=== PATIENT | female | born 2000 | race African-American/Black ===

== ENCOUNTER 2021-07-05 08:00 | Outpatient (CLI) | payer OTHER | END 2021-07-05 23:59 | LOC: LAB.N 08:00 | PROVIDERS: ATTEND Family Medicine | DX: U07.1 COVID-19 (principal) ==

== ENCOUNTER 2021-07-17 20:57 | Emergency (ER) | payer OTHER ==
[2021-07-17 21:08] VITALS: BP 128/80
--- NOTE | 2021-07-17 21:18 | ED Physician Documentation ---
History of Present Illness - Stated complaint Stated Complaint: FEMALE - Chief complaint Chief Complaint: General - History obtained from History obtained from: Patient - Additonal information Additional information: Sexually active 20-year-old woman was diagnosed with BV and yeast infection a little over a month ago. That resolved but over the last day or so has noted burning again and painful lumps in her perineal area. Review of Systems Constitutional: denies: Fever, Chills Throat: reports: Reviewed and negative Cardiac: reports: Reviewed and negative Respiratory: reports: Reviewed and negative PD PAST MEDICAL HISTORY - Present Medications Home Medications: Ambulatory Orders Medication Instructions Recorded Confirmed Doxycycline Hyclate 100 mg PO BID #14 tablet 05/21/21 metroNIDAZOLE [Flagyl] 500 mg PO TID 7 Days #21 tab 05/21/21 - Allergies Allergies/Adverse Reactions: Allergies Allergy/AdvReac Type Severity Reaction Status Date / Time No Known Drug Allergies Allergy Verified 07/17/21 21:09 - Social History Does the pt smoke?: No Smoking Status: Never smoker PD ED PE NORMAL - Vitals Vital signs reviewed: Yes - General General: Alert and oriented X 3, No acute distress - Abdomen Abdomen: Normal bowel sounds, Soft, Non tender - Female Female : [employer] present (Janice Seaman RN), Other (Yeasty dischg with satellite lesions more c/w hodan than HSV) - Neuro Neuro: Alert and oriented X 3, Normal speech - Psych Psych: Normal mood, Normal affect Results - Vitals Vitals: Vital Signs - 24 hr 07/17/21 07/17/21 21:02 21:53 Temperature 36.3 C L Heart Rate 93 93 Respiratory 16 14 Rate Blood Pressure 128/80 128/80 O2 Saturation 100 100 Oxygen O2 Source Room air - Labs Labs: Laboratory Tests 07/17/21 21:10 Urine Color YELLOW Urine Clarity CLEAR Urine pH 7.0 Ur Specific [place] 1.010 Urine Protein NEGATIVE Urine Glucose (UA) NEGATIVE Urine Ketones NEGATIVE Urine Occult Blood NEGATIVE Urine Nitrite NEGATIVE Urine Bilirubin NEGATIVE Urine Urobilinogen 0.2 (NORMAL) Ur Leukocyte Esterase TRACE H Urine RBC None Seen Urine WBC 4-5 Ur Squamous Epith Cells FEW Squamous Urine Bacteria Rare Ur Microscopic Review INDICATED Urine Culture Comments INDICATED Urine HCG, Qual NEGATIVE PD MEDICAL DECISION MAKING - ED course ED course: Clinically this looks like a candidal infection. She is specifically worried about herpes which it does not clinically look like. That said reasonable to check IgG IgM for "tie breaker." Departure - Departure Disposition: 01 Home, Self Care Clinical Impression: Vaginal candidiasis Condition: Good Record reviewed to determine appropriate education?: Yes Instructions: ED Vaginal Infec Fungal Hodan Comments: As discussed, clinically this more looks like Hodan, yeast infection, than it does herpes. We are performing herpes IgG and IgM testing. You can look up the results by going in signing up for the patient portal on [email or web address]. They should be done in a few days. If HSV 1 IgG or IgM is active, that just means you have the virus that causes cold sores. HSV-2 is the virus that causes genital herpes, if either IgG or IgM is positive, that means you do have that disease. [place] Return for new or worsening symptoms.
[2021-07-17 21:20] LABS: BILIRUBIN,URINE NEGATIVE (NEGATIVE); GLUCOSE, URINE (UA) NEGATIVE (NEGATIVE); KETONES,URINE (UA) NEGATIVE (NEGATIVE); LEUKOCYTE ESTERASE, URINE TRACE (NEGATIVE); NITRITE,URINE NEGATIVE (NEGATIVE); OCCULT BLOOD,URINE NEGATIVE (NEGATIVE); PROTEIN,URINE NEGATIVE (NEGATIVE); UROBILINOGEN,URINE 0.2 (NORMAL) E.U./dL (NORMAL)
[2021-07-17 21:21] LABS: CLARITY,URINE CLEAR (CLEAR)
[2021-07-17 21:23] LABS: HCG UR QUAL NEGATIVE
[2021-07-17] MEDS ORDERED: FLUCONAZOLE 100 MG TABLET PO STA (21:24)
[2021-07-17 21:29] LABS: BACTERIA,URINE Rare /HPF (None Seen); RBC,URINE None Seen /HPF (0-5); SQUAMOUS EPITHELIAL CELL,UR FEW Squamous (<= Few)
== END 2021-07-17 21:53 | disposition home or self-care (01) ==
LOC: ED 20:57
DX: B37.3 Candidiasis of vulva and vagina (principal)
CPT/HCPCS: 36415; 81001; 81025; 81599; 86695; 86696; 87086; 99282; 99283; A9270; 81003

== ENCOUNTER 2021-07-18 07:00 | Outpatient (CLI) | payer OTHER ==
[2021-07-18 23:10] LABS: CANDIDA GLABRATA DNA NEGATIVE (NEGATIVE); CANDIDA GROUP DNA POSITIVE (NEGATIVE); CANDIDA KRUSEI DNA NEGATIVE (NEGATIVE); TRICHOMONAS VAGINALIS DNA NEGATIVE (NEGATIVE)
[2021-07-18 23:46] LABS: CHLAMYDIA TRACHOMATIS DNA NEGATIVE (NEGATIVE); NEISSERIA GONORRHOEAE DNA NEGATIVE (NEGATIVE); TRICHOMONAS VAGINALIS DNA NEGATIVE (NEGATIVE)
[2021-07-19 01:52] LABS: BACTERIAL VAGINOSIS DNA NEGATIVE (NEGATIVE)
== END 2021-07-18 23:59 | disposition home or self-care (01) ==
LOC: LAB.N 07:00
PROVIDERS: ATTEND Family Medicine
DX: N89.8 Other specified noninflammatory disorders of vagina (principal)
CPT/HCPCS: 87491; 87591; 87661; 87801

== ENCOUNTER 2022-03-06 08:00 | Outpatient (CLI) | payer OTHER ==
--- NOTE | 2022-03-06 19:13 | XRAY Report ---
PROCEDURE: Hand 2 View RT INDICATIONS: R HAND PUNCTURE, R/O FOREIGN BODY TECHNIQUE: 3 views of the hand(s) acquired. COMPARISON: None FINDINGS: Bones: No fractures or dislocations. No suspicious bony lesions. Soft tissues: No suspicious soft tissue calcifications. IMPRESSION: No radiopaque foreign body Reviewed by: Roger Willingham MD on 03/06/2022 6:11 PM AKDT Approved by: Roger Willingham MD on 03/06/2022 6:11 PM AKDT Station ID: [id number]
== END 2022-03-06 23:59 | disposition home or self-care (01) ==
LOC: DI.N 08:00
PROVIDERS: ATTEND Registered Nurse
DX: M79.641 Pain in right hand (principal); S61.431A Puncture wound without foreign body of right hand, initial encounter

== ENCOUNTER 2022-03-19 10:54 | Outpatient (CLI) | payer OTHER ==
[2022-03-19 22:49] LABS: BACTERIAL VAGINOSIS DNA POSITIVE (NEGATIVE); CANDIDA GLABRATA DNA NEGATIVE (NEGATIVE); CANDIDA GROUP DNA NEGATIVE (NEGATIVE); CANDIDA KRUSEI DNA NEGATIVE (NEGATIVE); TRICHOMONAS VAGINALIS DNA NEGATIVE (NEGATIVE)
[2022-03-19 23:30] LABS: CHLAMYDIA TRACHOMATIS DNA NEGATIVE (NEGATIVE); NEISSERIA GONORRHOEAE DNA NEGATIVE (NEGATIVE)
[2022-03-20 06:09] LABS: HCV AB <0.1 s/co ratio (0.0-0.9)
[2022-03-21 00:08] LABS: HIV SCREEN 4TH GENERATION Non Reactive (Non Reactive)
[2022-03-21 05:12] LABS: RPR Non Reactive (Non Reactive)
== END 2022-03-19 10:55 | disposition home or self-care (01) ==
LOC: LAB.N 10:54
PROVIDERS: ATTEND Physician Assistant Medical
DX: Z11.3 Encounter for screening for infections with a predominantly sexual mode of transmission (principal)
CPT/HCPCS: 81514; 86592; 86803; 87389; 87491; 87591; 87661

== ENCOUNTER 2022-04-01 12:48 | Emergency (ER) | payer OTHER ==
--- NOTE | 2022-04-01 14:37 | ED Physician Documentation ---
History of Present Illness - Stated complaint Stated Complaint: LT EYE SWELLING - Chief complaint Chief Complaint: Heent - Additonal information Additional information: 21-year-old female presents emergency department for evaluation of 3 days left eye swelling and discharge. She reports that when she woke up Friday morning the eye had begun to swell she had clear discharge from it since then she has had generalized swelling of both the upper and lower lids though no full closure of the eye. Conjunctiva is generally injected. No real pain with eye movement. She did go to [facility] this morning and they requested a CT scan for ev aluation of possible orbital cellulitis. Patient does report reduced vision in that eye. She does wear corrective lenses but not contact lenses. No recent falls or trauma. No fevers. Patient does have a history of bipolar disorder. Takes Lamictal and Seroquel Review of Systems Constitutional: denies: Fever, Chills Eyes: reports: Decreased vision, Discharge, Irritation, Other (Left eye swelling) Ears: reports: Reviewed and negative Nose: reports: Reviewed and negative Respiratory: reports: Reviewed and negative GI: reports: Reviewed and negative : reports: Reviewed and negative PD PAST MEDICAL HISTORY - Past Medical History Cardiovascular: None Respiratory: None Neuro: None Musculoskeletal: None - Past Surgical History Past Surgical History: No - Present Medications Home Medications: Ambulatory Orders Medication Instructions Recorded Confirmed Quetiapine Fumarate [Seroquel] 50 mg PO HS 02/05/22 04/01/22 lamoTRIgine [LaMICtal] 100 mg PO DAILY 02/05/22 04/01/22 Clindamycin [Cleocin] 450 mg PO TID 7 Days #63 cap 04/01/22 - Allergies Allergies/Adverse Reactions: Allergies Allergy/AdvReac Type Severity Reaction Status Date / Time No Known Drug Allergies Allergy Verified 04/01/22 13:09 - Social History Does the pt smoke?: No Smoking Status: Never smoker Does the pt drink ETOH?: No Does the pt have substance abuse?: No - Immunizations Immunizations are current?: Yes - POLST Patient has POLST: No PD ED PE EXPANDED - General General: Alert, No acute distress - Eyes Eyes: PERRL, EOMI, Injected conj/sclera (Left eye), Exudate (Clear yellow left eye), Other (Generalized swelling periorbital region left eye. Mild erythema. Clear yellow drainage. Generally injected sclera and conjunctiva of the left eye. No extraocular movement pain. No significant pain with palpation. Globe is soft) Results - Vitals Vitals: Vital Signs - 24 hr 04/01/22 13:04 Temperature 36.7 C Heart Rate 92 Respiratory 14 Rate Blood Pressure 118/72 O2 Saturation 100 Oxygen O2 Source Room air - Labs Labs: Laboratory Tests 04/01/22 04/01/22 04/01/22 14:37 14:41 14:41 WBC 5.1 RBC 4.77 Hgb 14.4 Hct 44.1 MCV 92.5 MCH 30.2 MCHC 32.7 RDW 12.0 Plt Count 243 MPV 9.7 Neut # (Auto) 2.6 Lymph # (Auto) 1.9 [place] # (Auto) 0.4 Eos # (Auto) 0.0 Baso # (Auto) 0.0 Absolute Nucleated RBC 0.00 Nucleated RBC % 0.0 Sodium 139 Potassium 3.7 Chloride 105 Carbon Dioxide 29 Anion Gap 5.0 L BUN 5 L Creatinine 0.8 Estimated GFR (MDRD) 111 Glucose 76 Calcium 9.4 Total Bilirubin 0.7 AST 24 ALT 20 Alkaline Phosphatase 65 Total Protein 7.4 Albumin 4.3 Globulin 3.1 Albumin/Globulin Ratio 1.4 Lipase 52 H Urine HCG, Qual NEGATIVE - Rads (name of study) CT max fac Radiology: Final report received (Thickened and hyperenhancing left preseptal periorbital soft tissues including the left lacrimal gland, left anterior sclera and left conjunctiva findings are consistent with infectious or inflammatory process) PD MEDICAL DECISION MAKING - ED course Complexity details: reviewed results, re-evaluated patient, considered differential, d/w patient ED course: 21-year-old female presents emergency department for evaluation of 3 days swelling erythema around her left eye with yellow serous drainage from the eye itself[place] the ER for CT scan to rule out orbital cellulitis. On exam there was no eye pain elicited with ocular movements and the globe itself with soft with palpation. CBC showed no leukocytosis. She has no fevers here. Subsequent CT of the maxillofacial region with contrast shows periorbital cellulitis. Patient will be started on clindamycin 450 mg 3 times daily. Also make the recommendation for warm compress. Emergent return precautions were discussed for failure of symptoms to resolve or improve Departure - Departure Disposition: Home, Self Care Clinical Impression: Periorbital cellulitis of left eye Condition: Stable Record reviewed to determine appropriate education?: Yes Prescriptions: Clindamycin [Cleocin] 450 mg PO TID 7 Days #63 cap Comments: You are seen today in the emergency department because you have developed some swelling around her left eye for about the last 3 days. Your labs today in the emergency department were entirely normal. However the CT shows that you have a condition called periorbital cellulitis. This is infection and inflammation of the tissues around the eye but not behind the eye which is an important differentiation. In order to treat the infection please fill the prescription sent to [facility] in [place]. He will take clindamycin 450 mg 3 times a day for the next week. I recommend a very warm compress over the left eye for 10 minutes 3 times a day. Please buy an [id number] lubricating eyedrop this will help with the drainage and matting of your eyelashes. If you find that despite the antibiotics her symptoms are not improving over the next 48 to 72 hours or worsening before then with increased pain or fevers then please return immediately to the ER for second evaluation
[2022-04-01 14:45] LABS: BASOPHILS % (AUTO) 0.6 %; EOSINOPHILS % (AUTO) 0.4 %; HCT - HEMATOCRIT 44.1 % (37.0-47.0); HGB - HEMOGLOBIN 14.4 g/dL (12.0-16.0); LYMPHOCYTES # (AUTO) 1.9 10^3/uL (1.5-3.5); LYMPHOCYTES % (AUTO) 38.1 %; MEAN CORPUSCULAR HEMOGLOBIN 30.2 pg (27.0-31.0); MEAN CORPUSCULAR HGB CONC 32.7 g/dL (32.0-36.0); MEAN CORPUSCULAR VOLUME 92.5 fL (81.0-99.0); MEAN PLATELET VOLUME 9.7 fL (7.9-10.8); MONOCYTES # (AUTO) 0.4 10^3/uL (0.0-1.0); MONOCYTES % (AUTO) 8.7 %; NEUTROPHILS # (AUTO) 2.6 10^3/uL (1.5-6.6); PLT - PLATELET COUNT 243 10^3/uL (130-450); RED BLOOD COUNT 4.77 10^6/uL (4.20-5.40); WHITE BLOOD COUNT 5.1 x10^3/uL (4.8-10.8)
[2022-04-01 14:49] LABS: HCG UR QUAL NEGATIVE
[2022-04-01 14:59] LABS: ALBUMIN 4.3 g/dL (3.2-5.5); ALBUMIN/GLOBULIN RATIO 1.4 (1.0-2.2); BILIRUBIN,TOTAL 0.7 mg/dL (0.2-1.0); CALCIUM 9.4 mg/dL (8.5-10.3); CREATININE 0.8 mg/dL (0.4-1.0); POTASSIUM 3.7 mmol/L (3.5-5.0); TOTAL PROTEIN 7.4 g/dL (6.7-8.2)
--- NOTE | 2022-04-01 15:36 | CT Report ---
PROCEDURE: MAXILLOFACIAL with IV contrast. INDICATIONS: LEFT EYE SWELLING TECHNIQUE: After IV contrast administration, 1.5 mm thick axial images acquired from the mandible through the fr ontal sinuses, with coronal and sagittal reformatting. For radiation dose reduction, the following w as used: automated exposure control, adjustment of mA and/or kV according to patient size. COMPARISON: None. FINDINGS: Image quality: Excellent. Bones and teeth: Orbital davis are intact. Sinus davis show no fracture or deformity. Nasal bones and septum are intact. Visualized portions of the mandible demonstrate no fractures or subluxation. Zygomatic arches are intact. Pterygoid plates are intact. Visualized portions of the skull base an d auditory canals are intact. Sinuses: Paranasal sinuses are aerated, without fluid levels, mucosal thickening, or mucoceles. [place] air cells are aerated. Soft tissues: Mild left preseptal periorbital soft tissue edematous thickening. No fluid collection o r mass. Mild thickened hyperenhancement of the conjunctiva and possibly anterior sclera. Mildly enlar ged hyperenhancing lacrimal gland. Vascular: Visualized vascular structures appear normal. Bony vascular foramina and canals are intact. IMPRESSION: Thickened and hyperenhancing left preseptal periorbital soft tissues including the left lacrimal glan d, left anterior sclera, and left conjunctiva. Findings are consistent with either infectious or infl ammatory/chemical conjunctivitis with blepharitis and cellulitis. Reviewed by: Michael Mohamud MD on 04/01/2022 3:34 PM PDT Approved by: Michael Mohamud MD on 04/01/2022 3:34 PM PDT Station ID: [id number]
[2022-04-01 16:24] VITALS: BP 113/69
== END 2022-04-01 16:24 | disposition home or self-care (01) ==
LOC: ED 12:48
DX: L03.213 Periorbital cellulitis (principal)
CPT/HCPCS: 36415; 70486; 80053; 81025; 83690; 85025; 99282; 99284; Q9967